=== PATIENT | female | born 1965 | race Caucasian/White ===

== ENCOUNTER → 2017-02-22 | Outpatient (CLI) | payer BC ==
[~2017-02-22] MED LIST: AMOXICILLIN 50500 MG PO; B-12500 MC1 PO; B12 PO; CIPRO 500MG TA500 MG PO; DIFLUCAN150 MG PO; FLAGYL 500MG.500 MG PO; FLAGYL500 M1 PO; HYDROCODONE1 TABLET PO; LEVAQUIN500 MG PO; LEVAQUIN750 MG PO; LEVOTHYROXIN0.112 M1 PO; LORTAB 10/3251 TAB PO; METRONIDAZOLE500 MG PO; MULTI VITAMINS1 TA1 PO; NATURE'S BLEND400 I1 PO; PANTOPRAZOLE SO40 M1 PO; PERCOCET 5/3251 EACH PO; PHENERGAN 25MG.25 M1 PO; SYNTHROID 0.0.125 MG PO; TUMS 400MG TAB400 MG OR; VIT B 12; VIT D3 PO; VITAMIN D400 I1 PO; ZOFRAN4 MG PO; [UNRECOGNIZED DRUG - OTHER] PO
--- NOTE | 2017-02-22 14:48 | RADIOLOGY REPORT PS360 ---
CLINICAL INDICATION: Right shoulder pain ORDERING PHYSICIAN: ARTURO LOYA PATIENT AGE: 52 years COMPARISON: None FINDINGS: Three views of the right shoulder The distal clavicleright, scapula, and proximal humerus are intact. Glenohumeral and acromioclavicular alignment appear normal. There is no acute fracture or dislocation of the right shoulder. No destructive bony lesions are identified. IMPRESSION: No acute fracture or dislocation of the right shoulder.
== END ==
LOC: LAB 13:56 → RAD 13:56
DX: E03.8 Other specified hypothyroidism (principal); E06.3 Autoimmune thyroiditis; M25.511 Pain in right shoulder

== ENCOUNTER → 2017-03-22 | Outpatient (CLI) | payer BC ==
--- NOTE | 2017-03-23 10:20 | RADIOLOGY REPORT PS360 ---
MRI-UP EXT ANY JNT W/O-RT HISTORY: Right shoulder pain and numbness and tingling in right shoulder radiating in. Limited range of motion PAIN IN RIGHT SHOULDER ORDERING PHYSICIAN: Javan Mejia MD PATIENT AGE: 52 years COMPARISON: Radiograph obtained 02-22-17- TECHNIQUE: Standard multiplanar multiecho sequences are performed without contrast. FINDINGS: Hypertrophic changes are present at the acromioclavicular joint and there is downsloping of the acromion with subacromial stenosis with minimal hypertrophic changes along the undersurface of the acromium. The subacromial space is proximally 5 mm. Small amount fluid is present in the infraclavicular region distally. There is mild thickening with increased T2 signal involving the supraspinatus tendon consistent with tendinopathy/tendinosis. No obvious tear of the supraspinatus or infraspinatus tendons. There is some increased T2 signal in the subscapularis tendon as well but no evidence of tear of the subscapularis or teres minor tendons. No obvious labral tear. Bicipital tendon is in place. IMPRESSION: 1. Acromioclavicular arthropathy with subacromial stenosis with impingement upon the supraspinatus tendon with tendinopathy/tendinosis of the supraspinatus tendon but no evidence of rotator cuff tear. 2. Small amount fluid in this clavicular region consistent with some mild bursitis 3. Mild tendinopathy of the subscapularis tendon
== END ==
LOC: RAD 03-15 08:45
DX: M25.511 Pain in right shoulder (principal)